=== PATIENT | female | born 1965 ===

== ENCOUNTER 2021-09-12 11:15 | Inpatient (IN) | payer OTHER ==
[~2021-09-12] VITALS: Ht 162.6 cm; Wt 84.8 kg
[2021-09-12] MEDS ORDERED: TOPROL XL50 M1 PO (15:10)
[2021-09-12] MEDS ORDERED: AVALIDE 300-121 EACH PO (15:10)
[2021-09-12] MEDS ORDERED: GLIMEPIRIDE4 MG (15:11)
[2021-09-12] MEDS ORDERED: INVOKAMET 50-11 EACH PO (15:11)
[2021-09-12] MEDS ORDERED: LANTUS SOL100 UNIT/1 (15:12)
[2021-09-13] MEDS ORDERED: PANTOPRAZOLE SO40 MG (15:21)
[2021-09-14] MEDS ORDERED: INVOKAMET 50-11 EACH PO (19:15)
[2021-09-14] MEDS ORDERED: HYDRALAZINE HCL25 MG PO (19:15)
[2021-09-14] MEDS ORDERED: TOPROL XL50 M1 PO (19:15)
[2021-09-14] MEDS ORDERED: AVALIDE 300-121 EACH PO (19:15)
[2021-09-14] MEDS ORDERED: GLIMEPIRIDE4 MG PO (19:15)
[2021-09-14] MEDS ORDERED: PANTOPRAZOLE SO40 MG PO (19:15)
== END 2021-09-15 00:33 | disposition home or self-care (01) | DRG 811 ==
LOC: SURH 09-13 09:03 → SURG 09-13 11:15 → SURH 09-15 00:33
PROVIDERS: ADMIT Surgery; ATTEND Surgery
PROC: 30233N1 Transfusion of Nonautologous Red Blood Cells into Peripheral Vein, Percutaneous Approach (ICD-10-PCS; principal; 2021-09-13)
PROC: B24BZZZ Ultrasonography of Heart with Aorta (ICD-10-PCS; 2021-09-13)
DX: D64.89 Other specified anemias (principal); C18.6 Malignant neoplasm of descending colon; I21.A1 Myocardial infarction type 2; D63.0 Anemia in neoplastic disease; E11.9 Type 2 diabetes mellitus without complications; I10 Essential (primary) hypertension; Z20.822 Contact with and (suspected) exposure to COVID-19; E66.8 Other obesity; F32.89 Other specified depressive episodes

== ENCOUNTER 2021-09-18 11:13 | Outpatient (CLI) | payer OTHER ==
[~2021-09-18 11:13] MED LIST: AVALIDE 300-121 EACH PO; GLIMEPIRIDE4 MG; GLIMEPIRIDE4 MG PO; HYDRALAZINE HCL25 MG PO; INVOKAMET 50-11 EACH PO; LANTUS SOL100 UNIT/1; PANTOPRAZOLE SO40 MG; PANTOPRAZOLE SO40 MG PO; TOPROL XL50 M1 PO
[2021-09-18] MEDS ORDERED: HYDRALAZINE HCL25 MG PO (17:44)
[2021-09-19] MEDS ORDERED: PANTOPRAZOLE SO40 MG (08:09)
== END 2021-09-18 11:18 | disposition home or self-care (01) ==
LOC: LAB 11:13
PROVIDERS: ATTEND Internal Medicine Geriatric Medicine
DX: Z20.828 Contact with and (suspected) exposure to other viral communicable diseases (principal)

== ENCOUNTER 2021-09-18 17:28 | Inpatient (IN) | payer OTHER ==
[~2021-09-18] VITALS: Ht 162.6 cm; Wt 84.8 kg
[2021-09-18] MEDS ORDERED: HYDRALAZINE HCL25 MG PO (17:44)
[2021-09-19] MEDS ORDERED: PANTOPRAZOLE SO40 MG (08:09)
== END 2021-09-22 11:11 | disposition home or self-care (01) | DRG 331 ==
LOC: ER 17:28 → SURG 18:25
PROVIDERS: ADMIT Surgery; ATTEND Surgery
PROC: 0DBP4ZZ Excision of Rectum, Percutaneous Endoscopic Approach (ICD-10-PCS; 2021-09-19)
PROC: 07BC4ZZ Excision of Pelvis Lymphatic, Percutaneous Endoscopic Approach (ICD-10-PCS; 2021-09-19)
PROC: 0UT14ZZ Resection of Left Ovary, Percutaneous Endoscopic Approach (ICD-10-PCS; 2021-09-19)
PROC: 0DTN4ZZ Resection of Sigmoid Colon, Percutaneous Endoscopic Approach (ICD-10-PCS; principal; 2021-09-19 11:30)
DX: C18.6 Malignant neoplasm of descending colon (principal); D27.1 Benign neoplasm of left ovary; D12.6 Benign neoplasm of colon, unspecified; Z20.822 Contact with and (suspected) exposure to COVID-19; I11.9 Hypertensive heart disease without heart failure; I12.9 Hypertensive chronic kidney disease with stage 1 through stage 4 chronic kidney disease, or unspecified chronic kidney disease; N18.30 Chronic kidney disease, stage 3 unspecified; E11.9 Type 2 diabetes mellitus without complications